=== PATIENT | female | born 1995 | race Caucasian/White ===

== ENCOUNTER 2018-10-16 21:18 | Emergency (ER) | payer SELFPAY ==
[~2018-10-16] VITALS: Ht 162.6 cm; Wt 73.6 kg
[~2018-10-16 21:18] MED LIST: MIDRIN 325 MG-11 CAP PO; PERIACTIN 4MG TA4 MG PO; PREDNISONE20 MG PO; SARAFEM10 M1 PO
[2018-10-16 21:24] VITALS: BP 125/77; TEMP 98.3
[2018-10-16] MEDS ORDERED: LAMICTAL150 MG PO (21:36)
[2018-10-16] MEDS ORDERED: AMBIEN 10MG10 MG PO (21:36)
[2018-10-16] MEDS ORDERED: PERIACTIN 4MG TA4 MG PO (21:36)
[2018-10-16] MEDS ORDERED: XANAX 1MG1 MG PO (21:37)
[2018-10-16] MEDS ORDERED: YAZ 28 3 MG-0.01 TAB PO (21:37)
[2018-10-16 22:26] VITALS: PULSE 104
== END 2018-10-16 22:26 | disposition home or self-care (01) ==
LOC: COL.ER 21:18
DX: G43.909 Migraine, unspecified, not intractable, without status migrainosus (principal)
CPT/HCPCS: J1200; J1885; J2550

== ENCOUNTER 2020-09-01 23:28 | Emergency (ER) | payer OTHER ==
[~2020-09-01] VITALS: Ht 162.6 cm; Wt 74.1 kg
[~2020-09-01 23:28] MED LIST changes: +AMBIEN 10MG10 MG PO; +LAMICTAL150 MG PO; +XANAX 1MG1 MG PO; +YAZ 28 3 MG-0.01 TAB PO
[2020-09-01 23:55] LABS: BASO # 0.1 (0.0-0.2); BASO % 0.4 % (0.0-2.0); EOS % 0.2 % (0-4.0); HEMOGLOBIN 13.2 g/dl (12.5-16.0); LYMPH # 2.8 (1.2-3.4); LYMPH % 22.3 % (20.0-51.0); MEAN CELL VOLUME 87 fl (80.0-100.0); MEAN CORPUSCULAR HEMOGLOBIN 29 pg (27.0-31.0); MEAN CORPUSCULAR HGB CONC 33 g/dl (33.0-37.0); MEAN PLATELET VOLUME 8.7 fl (7.4-10.4); MONO # 0.6 (0.1-0.6); MONO % 4.8 % (1.7-9.3); PLATELET COUNT 303 K/mm3 (130-400); RED BLOOD COUNT 4.61 M/mm3 (4.10-5.30); REDCELL DISTRIBUTION WIDTH-CV 12.9 % (11.5-14.5)
[2020-09-02 00:05] LABS: ALANINE AMINOTRANSFERASE 23 U/L (4-34); ALBUMIN 4.4 gm/dL (3.5-5.0); ALKALINE PHOSPHATASE 56 U/L (50-136); ANION GAP 10 mmol/L (7-16); AST,SGOT 28 U/L (15-37); BILIRUBIN,TOTAL < 0.1 mg/dL (0.0-1.0); BLOOD UREA NITROGEN 10 mg/dL (7-17); CALCIUM 9.4 mg/dL (8.4-10.2); CARBON DIOXIDE 27 mmol/L (22-30); CHLORIDE 102 mmol/L (98-107); CREATININE, serum 0.65 (0.52-1.25); GLUCOSE 106 mg/dL (74-106); POTASSIUM 3.3 mmol/L (3.4-5.0); SODIUM 140 mmol/L (137-145); TOTAL PROTEIN 7.8 gm/dL (6.4-8.2)
[2020-09-02 00:31] LABS: COLLECTION METHOD CLEAN CATCH
[2020-09-02 00:36] LABS: MUCOUS Present /lpf; PH 5 (5-8); SQUAMOUS EPITHELIAL 0-2 /hpf; URINE APPEARANCE Hazy; URINE BACTERIA None Seen /hpf; URINE BILIRUBIN Negative (NEGATIVE); URINE BLOOD 3+ (NEGATIVE); URINE COLOR Yellow; URINE GLUCOSE Negative (NEGATIVE); URINE KETONE Trace (NEGATIVE); URINE LEUKOCYTE ESTERASE Negative (NEGATIVE); URINE NITRATE Negative (NEGATIVE); URINE PROTEIN(semi-quant) Negative (NEGATIVE); URINE RBC >50 /hpf; URINE UROBILINOGEN Negative (NEGATIVE)
[2020-09-02] MEDS ORDERED: NORCO 325 MG-51 TAB PO (02:11)
[2020-09-02 02:29] VITALS: BP 126/90; PULSE 110; TEMP 98.5
== END 2020-09-02 02:35 | disposition home or self-care (01) ==
LOC: COL.ER 23:28
PROVIDERS: Nurse Practitioner Family
DX: R10.32 Left lower quadrant pain (principal); R31.9 Hematuria, unspecified; R11.0 Nausea; F31.9 Bipolar disorder, unspecified; F41.9 Anxiety disorder, unspecified; G47.00 Insomnia, unspecified
CPT/HCPCS: J1885; J2405; J7030; Q9967